=== PATIENT | male | born 1965 | race Caucasian/White ===

== ENCOUNTER 2016-08-16 02:11 | Inpatient (IN) | payer MEDICARE ==
--- NOTE | ~2016-08-16 | CO ---
Unit #: [id number] #: [id number] Patient: DEXTER SABILLON JR [id number] [place] [address] [id number] I MR#: [id number] NAME: DEXTER SABILLON JR ROOM: [facility] Age: 51 Sex: M Admission Date: 08/16/2016 : 1965 Attending Physician: Suzette Leiva M.D. Primary Care Physician: Jerri Fuller M.D. Consultation Date: 08/17/2016 CONSULTATION REPORT HISTORY OF PRESENT ILLNESS Yesterday, Dexter had complaints of painful spots near the base of the penis. He was examined by a male nurse, who reported that he had a very small amount of redness near the base of his penis, but no bumps and appeared to be irritation from possible scratching or clothing rubbing against him. Today, Dexter reports that his symptoms have resolved. He is not having any pain or itching in his groin. He is feeling much better and declines exam. PHYSICAL EXAMINATION CARDIAC: Regular rate and rhythm. No murmur, gallop, or rub. RESPIRATORY: Clear to auscultation bilaterally. : The patient refused. ASSESSMENT AND PLAN Painful spots on penis. The patient reports that this has resolved. Today, he has no complaints. Please notify if symptoms return. Dictated by... Sarah Cade A.P.R.N. for Dav Chin/jazmyne TD: 08/17/2016 18:39 JOB #: [id number] CONSULTATION REPORT X SARAH HERNANDEZ APRN CONSULTATION REPORT
--- NOTE | ~2016-08-16 | PN ---
Unit #: [id number] #: [id number] Patient: AGUSTIN BETHEA JR [id number] [facility] [address] [place] [address] [id number] I MR#: [id number] NAME: AGUSTIN BETHEA JR ROOM: P180 Age: 51 Sex: M Admission Date: 08/16/2016 : 1965 Attending Physician: Suzette Leiva M.D. Admitting Physician: Suzette Leiva M.D. Primary Care Physician: Dav Guadarrama PROGRESS NOTES DATE 08/18/2016 DISCUSSION Mr. Bethea is a 51-year-old, white male who was seen today and chart was reviewed and case was discussed with the staff. He has been anxious, withdrawn and rather seclusive to himself. He has been taking the medication and tolerating them fairly well with no reported side effects. MENTAL STATUS EXAM Middle-aged white male who was casually dressed with fair personal hygiene, appears to be in no acute distress or discomfort. He was awake and alert on interaction with intact orientation. His mood was anxious with congruent affect. He denies any suicidal or homicidal ideation. His insight and judgement remains slightly impaired. TREATMENT PLAN 1. We will continue him on his current medications and treatment protocol. We will monitor his response to the medication and make further adjustments as needed. 2. We will continue to follow up. Dictated by... Dav Myers/opal TD: 08/20/2016 02:13 JOB #: [id number] Unit #: [id number] #: [id number] Patient: AGUSTIN BETHEA JR [facility] PROGRESS NOTES X Suzette Leiva MD PROGRESS NOTE
--- NOTE | ~2016-08-16 | PN ---
Unit #: [id number] #: [id number] Patient: AGUSTIN BETHEA JR [id number] [facility] [address] [place] [address] [id number] I MR#: [id number] NAME: AGUSTIN BETHEA JR ROOM: P180 Age: 51 Sex: M Admission Date: 08/16/2016 : 1965 Attending Physician: Suzette Leiva M.D. Admitting Physician: Suzette Leiva M.D. Primary Care Physician: Dav Guadarrama PROGRESS NOTES DATE 08/23/2016 DISCUSSION Mr. Bethea is a 51-year-old white male who was seen today and chart was reviewed and case was discussed with the staff who reports patient has been accepted at [facility] in [place] and that they will be able to accept her right after this weekend. Meanwhile, patient appears to be willing to go there and is hoping that everything will go as planned. He has been taking medications and tolerating them fairly well. MENTAL STATUS EXAMINATION Middle-aged white male who was casually dressed with fair personal hygiene and appears to be in no acute distress or discomfort. He was awake and alert on interaction with intact orientation. His mood was anxious with congruent affect. His speech is slow and goal-directed. He denies any suicidal or homicidal ideations and also denies any auditory or visual hallucinations. His insight and judgement remains slightly impaired. TREATMENT PLAN 1. Will continue his current medications and treatment protocol. Will monitor his response to the medications and make further adjustments as needed. 2. Will continue to follow up. Dictated by... Dav Myers/manuel TD: 08/24/2016 15:28 JOB #: [id number] Unit #: [id number] #: [id number] Patient: AGUSTIN BETHEA JR [facility] PROGRESS NOTES X Suzette Leiva MD PROGRESS NOTE
--- NOTE | ~2016-08-16 | PN ---
Unit #: [id number] #: [id number] Patient: AGUSTIN BETHEA JR [id number] [facility] [address] [place] [address] [id number] I MR#: [id number] NAME: AGUSTIN BETHEA JR ROOM: P180 Age: 51 Sex: M Admission Date: 08/16/2016 : 1965 Attending Physician: Suzette Leiva M.D. Admitting Physician: Suzette Leiva M.D. Primary Care Physician: Dav Guadarrama PROGRESS NOTES DATE August 17, 2016 DISCUSSION Mr. Bethea is a 51-year-old white male, who was seen today and chart was reviewed and the case was discussed with the staff. He has been anxious, withdrawn, depressive, and seclusive to himself. He has been lying in his bed and reports not feeling good and he has been having dysphoric symptoms. Meanwhile, he has been taking the medications and tolerating them fairly well with no reported side effects. MENTAL STATUS EXAMINATION Middle-aged white male, who was casually dressed with fair personal hygiene and appears to be in no acute distress or discomfort. He was awake and alert on interaction with intact orientation. His mood is anxious with a congruent affect. He denies any suicidal or homicidal ideations, and also denies any auditory or visual hallucinations. His insight and judgment remain slightly impaired. TREATMENT PLAN 1. We will continue him on his current medications and treatment protocol, and will monitor his response, and make further adjustments as needed. 2. We will continue to followup. Dictated by... Dav Myers/scott TD: 08/19/2016 10:19 JOB #: [id number] Unit #: [id number] #: [id number] Patient: AGUSTIN BETHEA JR ME[facility] PROGRESS NOTES X Suzette Leiva MD PROGRESS NOTE
--- NOTE | ~2016-08-16 | DS ---
Unit #: [id number] #: [id number] Patient: AGUSTIN BETHEA JR [id number] [facility] [address] [place] [address] [id number] I MR#: [id number] NAME: AGUSTIN BETHEA JR ROOM: P180 Age: 51 Sex: M Admission Date: 08/16/2016 : 1965 Discharge Date: 08/26/2016 Attending Physician: Suzette Leiva M.D. Primary Care Physician: Jerri Fuller M.D. DISCHARGE SUMMARY IDENTIFYING DATA Mr. Bethea is a 51-year-old , disabled, white male, who is a resident of [place], [place] and was just discharged from my care a couple of days ago and brought himself back to the hospital. DISCHARGE DIAGNOSES Psychiatric: Bipolar disorder, most recent episode depressed, recurrent, moderate, without psychotic features; alcohol dependence, moderate. Medical: None. Stressors: Moderate Psychosocial stressors. HISTORY OF PRESENT ILLNESS Please see initial psychiatric evaluation for details. PAST PSYCHIATRIC HISTORY Please see initial psychiatric evaluation for details. PAST MEDICAL HISTORY Please see initial psychiatric evaluation for details. HOSPITAL COURSE The patient [facility] and was oriented to the hospital environment. Routine p.r.n. medications were initiated, and he was started back on his home medications. Medications were adjusted and he was closely monitored. He was wanting to go to a long-term rehabilitation level of care and social services aide were able to get [facility] [place]; followed by which, it was decided that he will be discharged home and will be transferred to that facility. DISCHARGE MEDICATIONS Seroquel 400 mg at bedtime for bipolar, Celexa 20 mg a day for depression. DISCHARGE CONDITION Stable. PROGNOSIS Fair. Dictated by... Suzette Leiva M.D. IAA/modl Unit #: [id number] #: [id number] Patient: AGUSTIN BETHEA JR TD: 08/26/2016 07:02 JOB #: [id number] DISCHARGE SUMMARY X Suzette Leiva MD X DISCHARGE SUMMARY
--- NOTE | ~2016-08-16 | PN ---
Unit #: [id number] #: [id number] Patient: AGUSTIN BETHEA JR [id number] [facility] [address] [place] [address] [id number] I MR#: [id number] NAME: AGUSTIN BETHEA JR ROOM: P180 Age: 51 Sex: M Admission Date: 08/16/2016 : 1965 Attending Physician: Suzette Leiva M.D. Admitting Physician: Suzette Leiva M.D. Primary Care Physician: Dav Guadarrama PROGRESS NOTES DATE August 21, 2016 DISCUSSION Mr. Bethea is a 51-year-old white male, who was seen today and chart was reviewed and the case was discussed with the staff. He has been doing fairly well and has been seclusive to himself and he stated that he is trying to get into a long-term rehabilitation program in [place] and that he did interview with one facility in that state yesterday and is hoping that he will hear something back from them and get accepted. Meanwhile, he has been taking the medications and tolerating them fairly well. MENTAL STATUS EXAMINATION Middle-aged white male, who was casually dressed with fair personal hygiene and appears to be in no acute distress or discomfort. He was awake and alert on interaction with intact orientation. His mood is anxious with a congruent affect. His speech is slow and goal-directed. He denies any suicidal or homicidal ideations, and also denies any auditory or visual hallucinations. His insight and judgment remain slightly impaired. TREATMENT PLAN 1. We will continue him on his current medications and treatment protocol, and will monitor his response to the medications, and make further adjustments as needed. 2. We will continue to followup. Dictated by... Dav Myers/scott TD: 08/22/2016 08:12 JOB #: [id number] Unit #: [id number] #: [id number] Patient: AGUSTIN BETHEA JR PROGRESS NOTES X Suzette Leiva MD PROGRESS NOTE
--- NOTE | ~2016-08-16 | PN ---
Unit #: [id number] #: [id number] Patient: AGUSTIN BETHEA JR [id number] [facility] [address] [place] [address] [id number] I MR#: [id number] NAME: AGUSTIN BETHEA JR ROOM: P180 Age: 51 Sex: M Admission Date: 08/16/2016 : 1965 Attending Physician: Suzette Leiva M.D. Admitting Physician: Suzette Leiva M.D. Primary Care Physician: Dav Guadarrama PROGRESS NOTES DATE 08/22/2016 DISCUSSION Mr. Bethea is a 51-year-old, white male who was seen today and chart was reviewed and case was discussed with the staff. He has been anxious, withdrawn and has been trying to get into a [facility]ci rehabilitation program and a referral to [facility] in [place] was made but he got turned down for some unknown reason and director of social work has now made referrals to [facility] in [place] but we have not heard anything back. MENTAL STATUS EXAM Middle-aged white male who was casually dressed with fair personal hygiene, appears to be in no acute distress or discomfort. He was awake and alert on interaction with intact orientation. His mood was anxious with congruent affect. His speech was slow and goal directed. He denies any suicidal or homicidal ideation. Also, denies any auditory or visual hallucinations. His insight and judgement remains slightly impaired. TREATMENT PLAN We will continue him on his current medications and treatment protocol. We will monitor his response to the medications and make further adjustments as needed. Dictated by... Dav Myers/opal TD: 08/23/2016 02:04 JOB #: [id number] Unit #: [id number] #: [id number] Patient: AGUSTIN BETHEA JR MEG PROGRESS NOTES X Suzette Leiva MD PROGRESS NOTE
--- NOTE | ~2016-08-16 | PA ---
Unit #: [id number] #: [id number] Patient: AGUSTIN BETHEA JR [id number] [facility] [address] [place] [address] [id number] I MR#: [id number] NAME: AGUSTIN BETHEA JR ROOM: P180 Age: 51 Sex: M Admission Date: 08/16/2016 : 1965 Date of Assessment: Attending Physician: Suzette Leiva M.D. Admitting Physician: Suzette Leiva M.D. Primary Care Physician: Jerri Fuller M.D. PSYCHIATRIC ASSESSMENT DATE OF SERVICE 08/16/2016. IDENTIFYING DATA Mr. Bethea is a 51-year-old, , disabled, white male, who is a resident of [place], [place] and was just discharged from my care a couple of days ago and brought himself back to the hospital. CHIEF COMPLAINT "I'm having suicidal thoughts, blowing my head off." HISTORY OF PRESENT ILLNESS Mr. Bethea is a 51-year-old white male with dual diagnosis of mood disorder and substance abuse, who is very well known to me from previous multiple encounters and has been a habitual offender when comes to inpatient hospitalization and was just discharged a couple days ago after he stated that he wanted to leave and he is planning to go to a treatment facility in [place] and his sister is going to come and pick him up and was discharged; however, he once again did not follow up with any of the treatment recommendations after discharge from the hospital, brought himself right back to the hospital stating that he has been decompensating his mood and that he is suicidal and has a plan to blow his head off and "I've been thinking about all day, I just want to live no more." He reports that he is currently on disability and has not been functioning very well and reports poor social support system and strained relationship with family members with disturbed sleep, psychomotor retardation, feelings of hopelessness and helplessness, and suicidal ideations with intent and plan. SUBSTANCE ABUSE HISTORY The patient reports long history of alcohol dependence and has been drinking since he was 11 years old and currently has been drinking a pint of liquor a day, but denies any other drug abuse. PAST PSYCHIATRIC HISTORY The patient has had a history of numerous and multiple inpatient [facility] [place] in addition to being at other facilities and has been diagnosed and treated for mood disorder more on the line of bipolar and review of the medical records indicate that he has been on a combination of Seroquel, Celexa, Neurontin and Vistaril, but as mentioned he has poor history of compliance with outpatient treatment recommendations. Unit #: [id number] #: [id number] Patient: RIDGEAGUSTIN FABIAN JR PAST MEDICAL HISTORY The patient's medical history is insignificant. PERSONAL AND SOCIAL HISTORY A 51-year-old white male, who reports he is single, unemployed, disabled, and lives with his sister and has fairly decent social support system. MENTAL STATUS EXAMINATION Middle-aged white male, who was casually dressed with fair personal hygiene, appears to be in no acute distress or discomfort. He was awake and alert on interaction with intact orientation to time, place, and person. His mood was anxious and depressed with a congruent affect. Speech was slow and goal directed. He reports having suicidal ideation, but denies any homicidal ideation, and also denies any auditory or visual hallucinations. His insight and judgment remain significantly impaired. DIAGNOSTIC IMPRESSION Psychiatric: Bipolar disorder, most recent episode depressed, recurrent, moderate, without psychotic features; alcohol dependence, moderate. Medical: None. Stressors: Moderate psychosocial stressors. TREATMENT PLAN 1. The patient has presented with a history of mood disorder and has been decompensating and will need inpatient hospitalization for safety and stabilization. We will start him back on his home medications and we will adjust the medications and monitor response. 2. Supportive therapy was provided to the patient. 3. Safe, structured, and nourishing environment will be provided. ESTIMATED LENGTH OF STAY 5 to 7 days. ABILITY TO HELP SELF Limited. WILLINGNESS TO HELP SELF The patient appears to be willing to help self. STRENGTHS 1. Communicative. 2. Cooperative. PROBLEMS 1. Chronic dysphoric symptoms. 2. Chronic chemical dependency. 3. Poor social support system. DISCHARGE CRITERIA This will be contingent upon the patient's ability to show resolution of his depression and anxiety and his ability to stay safe to himself, particularly after discharge from the hospital. Dictated by... Suzette Leiva M.D. Unit #: [id number] #: [id number] Patient: RIDGEAGUSTIN FABIAN JR IAA/modl TD: 08/16/2016 06:46 JOB #: [id number] PSYCHIATRIC ASSESSMENT X Suzette Leiva MD PSYCHIATRIC ASSESSMENT
--- NOTE | ~2016-08-16 | PN ---
Unit #: [id number] #: [id number] Patient: AGUSTIN BETHEA JR [id number] [facility] [address] [place] [address] [id number] I MR#: [id number] NAME: AGUSTIN BETHEA JR ROOM: P180 Age: 51 Sex: M Admission Date: 08/16/2016 : 1965 Attending Physician: Suzette Leiva M.D. Admitting Physician: Suzette Leiva M.D. Primary Care Physician: Dav Guadarrama PROGRESS NOTES DATE OF SERVICE: 08/20/2016 SUBJECTIVE Mr. Bethea is a 51-year-old white male, who was seen today and chart was reviewed, and case was discussed with staff. He has been anxious, withdrawn, and rather seclusive to himself. Meanwhile, he has been cooperative with treatment recommendations and has been taking the medications and tolerating them fairly well with no reported side effects. MENTAL STATUS EXAMINATION Middle-aged white male who was casually dressed with fair personal hygiene, appears to be in no acute distress or discomfort. He was awake and alert on interaction with intact orientation. His mood was anxious with a congruent affect. He denies any suicidal or homicidal ideations and also denies any auditory or visual hallucinations. His insight and judgment remain slightly impaired. TREATMENT PLAN 1. We will continue on his current medications including Seroquel. We will monitor his response to medications and make further adjustments as needed. 2. We will continue to follow up. Dictated by... Dav Myers/jazmyne TD: 08/21/2016 00:20 JOB #: [id number] [facility] PROGRESS NOTES X Suzette Leiva MD PROGRESS NOTE
--- NOTE | ~2016-08-16 | HP ---
Unit #: [id number] #: [id number] Patient: DEXTER SABILLON JR [id number] [facility] [address] [place] [address] [id number] I MR#: [id number] NAME: DEXTER SABILLON JR ROOM: P180 Age: 51 Sex: M Admission Date: 08/16/2016 : 1965 Attending Physician: Suzette Leiva M.D. Admitting Physician: Suzette Leiva M.D. Primary Care Physician: Jerri Fuller M.D. HISTORY AND PHYSICAL Dexter is a 51 year old admitted to [facility] because of his continued abuse of alcohol. He was just discharged from this facility after treatment for the same. The patient was seen and H and P dated 08/09/16 was reviewed. This is current. No changes. Please see H and P dated 08/09/16. Dictated by... Malathi Ayers P.A.-C. for Dav Chin/manuel TD: 08/16/2016 22:16 JOB #: [id number] HISTORY AND PHYSICAL X Malathi Ayers HISTORY AND PHYSICAL
--- NOTE | ~2016-08-16 | PN ---
Unit #: [id number] #: [id number] Patient: AGUSTIN BETHEA JR [id number] [facility] [address] [place] [address] [id number] I MR#: [id number] NAME: AGUSTIN BETHEA JR ROOM: P180 Age: 51 Sex: M Admission Date: 08/16/2016 : 1965 Attending Physician: Suzette Leiva M.D. Admitting Physician: Suzette Leiva M.D. Primary Care Physician: Dav Guadarrama PROGRESS NOTES DATE 08/24/2016 DISCUSSION Mr. Bethea is a 51-year-old, white male who was seen today and chart was reviewed and case was discussed with the staff. He has been anxious, withdrawn taking medications and tolerating them fairly well with no reported side effects. MENTAL STATUS EXAM Middle-aged white male who was casually dressed with fair personal hygiene, appears to be in no acute distress or discomfort. He was awake and alert on interaction with intact orientation. His mood was anxious with congruent affect. He denies any suicidal or homicidal ideation. His insight and judgement remains slightly impaired. TREATMENT PLAN 1. We will continue him on his current medications and treatment protocol. We will monitor his response to the medication and make further adjustments as needed. 2. We will continue to follow up. Dictated by... Dav Myers/opal TD: 08/27/2016 02:22 JOB #: [id number] Unit #: [id number] #: [id number] Patient: AGUSTIN BETHEA JR [facility] PROGRESS NOTES X Suzette Leiva MD PROGRESS NOTE
--- NOTE | ~2016-08-16 | PN ---
Unit #: [id number] #: [id number] Patient: AGUSTIN BETHEA JR [id number] [facility] [address] [place] [address] [id number] MR#: [id number] NAME: AGUSTIN BETHEA JR ROOM: P180 Age: 51 Sex: M Admission Date: 08/16/2016 : 1965 Attending Physician: Suzette Leiva M.D. Admitting Physician: Suzette Leiva M.D. Primary Care Physician: Dav Guadarrama PROGRESS NOTES DATE OF SERVICE: 08/25/2016 SUBJECTIVE Mr. Bethea is a 51-year-old white male who was seen today and chart was reviewed, and case was discussed with staff. He has been anxious, withdrawn, and rather seclusive to himself. Meanwhile, he has been cooperative with treatment recommendations and has been taking the medications and tolerating them fairly well with no reported side effects. MENTAL STATUS EXAMINATION Middle-aged white male who was casually dressed with fair personal hygiene, appears to be in no acute distress or discomfort. He was awake and alert on interaction with intact orientation. His mood was anxious with a congruent affect. His speech was slow and goal directed. He denies any suicidal or homicidal ideations, and also denies any auditory or visual hallucinations. His insight and judgment remain slightly impaired. TREATMENT PLAN 1. We will continue him on his current medications and treatment protocol. We will monitor his response to medications and make further adjustments as needed. 2. We will continue to follow up. Dictated by... Dav Myers/jazmyne TD: 08/27/2016 01:43 JOB #: [id number] [facility] PROGRESS NOTES X Suzette Leiva MD PROGRESS NOTE
--- NOTE | ~2016-08-16 | PN ---
Unit #: [id number] #: [id number] Patient: AGUSTIN BETHEA JR [id number] [facility] [address] [place] [address] [id number] I MR#: [id number] NAME: AGUSTIN BETHEA JR ROOM: P180 Age: 51 Sex: M Admission Date: 08/16/2016 : 1965 Attending Physician: Suzette Leiva M.D. Admitting Physician: Suzette Leiva M.D. Primary Care Physician: Dav Guadarrama PROGRESS NOTES DATE OF SERVICE: 08/19/2016 SUBJECTIVE Mr. Bethea is a 51-year-old white male who was seen today and chart was reviewed, and case was discussed with staff. He has been anxious, withdrawn, and rather seclusive to himself and reports persistent depressive symptoms, though he reports sleeping better last night with additional trazodone into his Seroquel. He has been taking medications and tolerating them fairly well. MENTAL STATUS EXAMINATION Middle-aged white male who was casually dressed with fair personal hygiene, appears to be in no acute distress or discomfort. He was awake and alert on interaction with intact orientation. His mood was anxious with a congruent affect. His speech was slow and goal directed. He denies any suicidal or homicidal ideation, and also denies any auditory or visual hallucinations. His insight and judgment remain significantly impaired. TREATMENT PLAN 1. We will continue him on his current medications and treatment protocol. We will monitor his response to medications and make further adjustments as needed. 2. We will continue to follow up. Dictated by... Dav Myers/jazmyne TD: 08/20/2016 05:43 JOB #: [id number] Unit #: [id number] #: [id number] Patient: AGUSTIN BETHEA JR MEG PROGRESS NOTES X Suzette Leiva MD PROGRESS NOTE
[~2016-08-16 02:11] MED LIST: CARAFATE1 G PO; HYDROCODON-ACE1 EAC9 PO; KEFLEX PO; KLONOPIN PO; KLONOPIN2 MG PO; LORAZEPAM; LORTAB 7.5-5001 TAB PO; MYLANTA400 MG PO; NEXIUM PO; PHENERGAN PO; PHENERGAN PR; PHENERGAN25 MG PO; PRILOSEC PO; PROTONIX PO; SEROQUEL PO; SEROQUEL XR200 MG PO; SEROQUEL400 MG PO; TEGRETOL PO; TRAZODONE PO; XANAX2 MG PO; ZANTAC PO; ZOFRAN PO; ZOLOFT PO; [UNRECOGNIZED DRUG - OTHER] INJ; [UNRECOGNIZED DRUG - REMARK]
== END 2016-08-26 09:42 | DRG 885 ==
LOC: P1E 02:11
DX: F31.32 Bipolar disorder, current episode depressed, moderate (principal); R45.851 Suicidal ideations; F10.20 Alcohol dependence, uncomplicated; Z56.0 Unemployment, unspecified; F41.9 Anxiety disorder, unspecified; N48.89 Other specified disorders of penis
CPT/HCPCS: 82947